=== PATIENT | female | born 1980 | race Caucasian/White ===

== ENCOUNTER → 2016-09-16 | Outpatient (CLI) | payer OTHER ==
[2016-09-16 15:01] LABS: URINE APPEARANCE CLEAR (CLEAR); URINE BILIRUBIN NEG (NEG); URINE COLOR YELLOW; URINE EPITHELIAL CELL AUTO 0-5 /lpf (0-5); URINE NITRITE NEG (NEG); URINE SPECIFIC GRAVITY 1.011 (1.000-1.030); UROBILINOGEN NEG (NEG)
[2016-09-16 15:14] LABS: MANUAL MICROSCOPIC REQUIRED? NO; REVIEW REQ? NO
== END | disposition home or self-care (01) ==
LOC: C.LABSPEC 11:56
PROVIDERS: ATTEND Nurse Practitioner Family
DX: R39.9 Unspecified symptoms and signs involving the genitourinary system (principal)

== ENCOUNTER 2017-04-08 05:18 | Day surgery (SDC) | payer OTHER ==
[2017-03-31 13:51] VITALS: BMI 19.0
--- NOTE | 2017-03-31 14:08 | PAT Medication Instructions ---
Service Date Mar 31, 2017. Current Home Medication List Alprazolam (Xanax), 0.25 MG PO HS PRN for RN Cetirizine (Zyrtec), 10 MG PO PRN Ethinyl Estradiol/Norgestrel (Cryselle-28), 1 TAB PO DAILY Fluticasone Propionate (Nasal) (Flonase Allergy Relief), 1 SPRAY INTNAS prn Multivitamin (Multivitamin), 1 TAB PO NOON Medication Instructions For Your Scheduled Surgery - Hold the following medications the morning of surgery: Multivitamin (Multivitamin), 1 TAB PO NOON Cetirizine (Zyrtec), 10 MG PO PRN - Take the following medications the morning of surgery: Fluticasone Propionate (Nasal) (Flonase Allergy Relief), 1 SPRAY INTNAS prn - Take the following medications as scheduled the night before surgery: Alprazolam (Xanax), 0.25 MG PO HS PRN Fluticasone Propionate (Nasal) (Flonase Allergy Relief), 1 SPRAY INTNAS prn Ethinyl Estradiol/Norgestrel (Cryselle-28), 1 TAB PO DAILY Nothing to eat or drink after midnight If you have any questions please call us at [phone] or [phone] or [phone]
[2017-03-31 14:42] LABS: BASO % 0.2 %; BASO ABS # 0.01 K/uL (0-0.2); EOS % 0.6 %; EOS ABS # 0.04 K/uL (0-0.5); HEMATOCRIT 39.7 % (37-47); HEMOGLOBIN 13.2 g/dL (12.0-16.0); IG# 0.01 K/uL (0.00-0.02); LYMPH % 27.8 %; LYMPH ABS # 1.78 K/uL (1.2-3.4); MEAN CELL VOLUME 89.8 fL (80-100); MEAN CORPUSCULAR HEMOGLOBIN 29.9 pg (25-34); MEAN CORPUSCULAR HGB CONC 33.2 g/dl (32-36); MEAN PLATELET VOLUME 11.9 fL (7.4-10.4); MONO % 5.8 %; MONO ABS # 0.37 K/uL (0.11-0.59); NEUT % 65.4 %; PLATELET COUNT 217 K/uL (130-400); RED CELL DISTRIBUTION WIDTH CV 12.7 % (11.5-14.5); RED CELL DISTRIBUTION WIDTH SD 41.9 fL (36.4-46.3); WHITE BLOOD COUNT 6.41 K/uL (4.8-10.8)
--- NOTE | 2017-03-31 14:42 | DIAGNOSTIC IMAGING REPORT ---
CHEST 2 VIEWS ROUTINE HISTORY: 36 years-old Female PAT preoperative exam. No acute chest complaints COMPARISON: None available TECHNIQUE: PA and lateral views of the chest FINDINGS: Cardiac mediastinal and hilar silhouettes are within normal limits. No pneumothorax, pleural effusion, focal airspace consolidation or overt pulmonary edema. The bones of the chest appear grossly intact. IMPRESSION: No acute cardiopulmonary process. The above report was generated using voice recognition software. It may contain grammatical, syntax or spelling errors. Electronically signed by: rTever Jeffries M.D. 03/31/2017 2:41 PM Dictated Date/Time: 03/31/2017 2:40 PM
[2017-03-31 14:48] LABS: CALCIUM 8.9 mg/dl (8.5-10.1); CREATININE 0.81 mg/dl (0.60-1.20); POTASSIUM 3.8 mmol/L (3.5-5.1)
[~2017-04-08] VITALS: Ht 167.6 cm; Wt 53.9 kg
[~2017-04-08 05:18] MED LIST: ALPR-411 PO; CETI10TA84 PO; CRY28 PO; FLUT0.15 INTNAS; MULT-506 PO
[2017-04-08 05:43] VITALS: BP 107/73; PULSE 81; TEMP 36.7; O2SAT 99; Ht 167.6 cm; Wt 53.9 kg
[2017-04-08] MEDS ORDERED: LACTATED RINGER'S 1000ML 1,000 ML IV SCH ×2 (06:00→08:09)
[2017-04-08] MEDS ORDERED: LACTATED RINGER'S 1000ML 500 ML IV ONE (06:00)
--- NOTE | 2017-04-08 06:23 | History & Physical Bridge Note ---
H&P Re-Evaluation Bridge Note: I have examined the patient, reviewed the History & Physical and in the interval since the performance of the History & Physical I have noted the following changes of clinical significance: No changes noted pt examined and marked, at bedside, all questions answered
[2017-04-08] MEDS ORDERED: LIDOCAINE HCL 2% 2 ML VIAL (20MG/ML) ONE (06:31)
[2017-04-08] MEDS ORDERED: ONDANSETRON INJ 2 MG/ML 2 ML VIAL ONE ×2 (06:31→08:37)
[2017-04-08] MEDS ORDERED: MIDAZOLAM HCL 1 MG/ML 2ML VIAL ONE (06:31)
[2017-04-08] MEDS ORDERED: DEXAMETHASONE SOD INJ 4 MG/ML VIAL ONE (06:31)
[2017-04-08] MEDS ORDERED: PROPOFOL IV EMULSION 10 MG/ML 20 ML VIAL IV ONE (06:31)
[2017-04-08] MEDS ORDERED: FENTANYL CITRATE INJ 50 MCG/1 ML 2 ML VIAL ONE ×2 (06:31)
[2017-04-08] MEDS ORDERED: KETOROLAC TROMETHAMINE 30 MG/ML VIAL ONE (06:32)
[2017-04-08] MEDS ORDERED: BACITRACIN 50000 UNIT VIAL ONE (06:33)
[2017-04-08] MEDS ORDERED: BUPIVACAINE 0.5 % 5 MG/1 ML MPF 30ML VIAL ONE (06:33)
[2017-04-08] MEDS ORDERED: CEFAZOLIN SOD 1 GM VIAL ONE (07:22)
[2017-04-08] MEDS ORDERED: OXYC-57 PO (08:11)
[2017-04-08] MEDS ORDERED: ONDA4TAB65 PO (08:11)
--- NOTE | 2017-04-08 08:13 | Discharge Instructions ---
Discharge Instructions Date of Service Apr 08, 2017. Visit Reason for Visit: Umbilical Hernia Discharge Discharge Diagnosis / Problem: umbilical hernia repair Discharge Goals Goal(s): Decrease discomfort Activity Recommendations Activity Limitations: as noted below Lifting Limitations: no more than 10 pounds Shower/Bathe: no limitations (ok to shower over dressing, remove in 2 days) Driving or Machine Use: resume 3 days after discharge Anesthesia . Post Anesthesia Instructions: If you have had General Anesthesia or IV Sedation: * Do not drive today. * Resume driving when surgeon permits. * Do not make important decisions or sign legal documents today. * Call surgeon for: 1. Temperature elevations greater than 101 degrees F. 2. Uncontrollable pain. 3. Excessive bleeding. 4. Persistent nausea and vomiting. 5. Medication intolerance (nausea, vomiting or rash). * For nausea and vomiting use only clear liquids such as: tea, soda, bouillon until nausea subsides, then gradually increase diet as tolerated. * If you have any concerns or questions, call your surgeon's office. If physician is unavailable and it is an emergency, call 911 or go to the nearest emergency room. . Instructions / Follow-Up Instructions / Follow-Up Dr. Novak in 1 week, call [phone] if you do not already have an appt or have any questions Diet Recommendations Recommended Home Diet: no limitations Procedures Procedures Performed: Open Umbilical Hernia Repair with Mesh Pending Studies Studies pending at discharge: no Medical Emergencies . Who to Call and When: Medical Emergencies: If at any time you feel your situation is an emergency, please call 911 immediately. . Non-Emergent Contact Non-Emergency issues call your: Surgeon Call Non-Emergent contact if: you have a fever, temperature is above 101.5, your pain is not controlled, wound has increased drainage, wound has increased redness . . "Provider Documentation" section prepared by Bismark Peña. . [place] Drug Monitoring Program Search Results: no issues identified
[2017-04-08] MEDS ORDERED: MoRPHine SULFATE 4 MG/ML 1 ML CARP\\VIAL IV PRN (08:15)
[2017-04-08] MEDS ORDERED: ONDANSETRON INJ 2 MG/ML 2 ML VIAL IV PRN ×2 (08:15→08:30)
[2017-04-08] MEDS ORDERED: OXYCODONE/ACETAMINOPHEN 5-325 TAB PO PRN (08:15)
--- NOTE | 2017-04-08 08:22 | [facility] Operative Report ---
Operative Report Operative Date Apr 08, 2017. Pre-Operative Diagnosis Umbilical hernia Post-Operative Diagnosis Same Procedure(s) Performed Open Umbilical Hernia Repair with 4.2 cm c-qur mesh Surgeon Dr Novak Lining Baster Surgeon(s) Bismark Peña PA-C Estimated Blood Loss 3ML Findings ren 2 cm defect with incarcerated fatty tissue Specimens NONE Description of Procedure OR summary dictated [id number] I attest to the content of the Intraoperative Record and any orders documented therein. Any exceptions are noted below.
[2017-04-08] MEDS ORDERED: FENTANYL CITRATE INJ 50 MCG/1 ML 2 ML VIAL IV PRN (08:30)
[2017-04-08] MEDS ORDERED: MEPERIDINE HCL 25 MG/ML CARP IV PRN (08:30)
[2017-04-08] MEDS ORDERED: LABETALOL HCL IV 5 MG/ML 20ML IV PRN (08:30)
[2017-04-08] MEDS ORDERED: HYDROmorphone INJ 1 MG/ML SYR IV PRN (08:30)
[2017-04-08] MEDS ORDERED: ATROPINE SULFATE 0.1 MG/ML 5ML SYR IV PRN (08:30)
[2017-04-08] MEDS ORDERED: EpHEDrine SULFATE INJ 50 MG/ML AMP IV PRN (08:30)
--- NOTE | 2017-04-08 08:54 | Anesthesiology Progress Note ---
Anesthesia Post Op Note Date & Time Apr 08, 2017 at 08:53 Vital Signs Pain Intensity: 0 Vital Signs Past 12 Hours Date Time Temp Pulse Resp B/P (MAP) Pulse Ox O2 Delivery O2 Flow Rate FiO2 04/08/17 08:50 36.7 60 12 99/65 (75) 97 Room Air 04/08/17 08:40 62 16 104/64 (75) 99 Room Air 04/08/17 08:30 62 12 102/70 (82) 99 Oxymask 10 04/08/17 08:20 77 12 105/63 (83) 100 Oxymask 10 04/08/17 08:13 78 16 103/70 (79) 100 Oxymask 10 04/08/17 08:12 36.0 85 16 100 Oxymask 10 04/08/17 05:43 36.7 81 16 107/73 (84) 99 Room Air Notes Mental Status: alert / awake / arousable, participated in evaluation Pt Amnestic to Procedure: Yes Nausea / Vomiting: adequately controlled Pain: adequately controlled Airway Patency, RR, SpO2: stable & adequate BP & HR: stable & adequate Hydration State: stable & adequate Anesthetic Complications: no major complications apparent
--- NOTE | 2017-04-08 08:55 | OPERATIVE REPORT ---
DATE OF OPERATION: 04/08/2017 PREOPERATIVE DIAGNOSIS: Symptomatic umbilical hernia incarcerated. POSTOPERATIVE DIAGNOSIS: Same with defect approximately 2 cm. PROCEDURE: Open repair of incarcerated umbilical hernia with 4.2 cm Trimont mesh. SURGEON: Dr. Novak. INSOLE TACK PULLER HAND: Rogerio Peña PA-C. OPERATION AND FINDINGS: SUMMARY: The patient was brought into the operating room theater. The abdomen was prepped with scrubbing solution of Betadine and properly draped. We made an incision just to the left of the umbilicus. The patient had a protruding very thin skin over the umbilical tissue that was obviously palpated hernia and also inferior in the midline of the abdominal wall the patient had some sort of white tissue, no true hernia and clinically appeared to be a diastasis. This extended approximately 3 cm or so below the umbilical tissue. We made an incision as stated to the left taken down for approximately 2 inches and then we exposed the subcutaneous tissue, identified the incarcerated fatty tissue in the umbilical area. We were able then to return that all intraabdominally, dissected out the abdominal wall to outline the marking of the hernia, which was about 2 cm. I was able to put a finger underneath and actually palpated no other defect in the abdominal wall and the area that we had mentioned before as a diastasis confirmed that there was no real hernia there. At this point, I elected to bring a Trimont 4.2 cm and placed intraabdominally. The straps were then placed at 3 and 9 o'clock position and we used 2-0 nylon suture to tack this to around the defect of the opening. This was interrupted sutures. Once we had completed, we divided the excess strap and left it intact. The area then we modified the distal aspect where we thought that she has some excess skin, elliptically incised the skin to approximately we had an incision about 3.5 inches long. The excess skin was removed. We cosmetically brought back together in multiple layers, #2-0 Dexon interrupted suture. Paying attention to the umbilical tissue which again it seemed to be quite distorted preoperatively, we tried to reconstruct some of it looked possibility that once would heal with a cosmetic result. We closed this with 4-0 Monocryl subcutaneously, Steri-Strips applied. A dental roll was placed in the umbilical tissue. A dressing was applied. The procedure was tolerated well by the patient. Estimated blood loss approximately 3 mL. We also used some local anesthetic around the abdominal wall which was 0.5% plain, used approximately 8 mL. I attest to the content of the Intraoperative Record and any orders documented therein. Any exception s are noted below.
[2017-04-08 09:05] VITALS: PULSE 82; TEMP 36.7; O2SAT 100
[2017-04-08 09:35] VITALS: BP 109/64; PULSE 79; O2SAT 100
[2017-04-08 10:00] VITALS: BP 107/74; PULSE 78; TEMP 36.6; O2SAT 99
== END 2017-04-08 10:00 | disposition home or self-care (01) ==
LOC: C.ACU 05:18
PROVIDERS: ATTEND Surgery
DX: K42.0 Umbilical hernia with obstruction, without gangrene (principal); J30.9 Allergic rhinitis, unspecified; Z83.3 Family history of diabetes mellitus